=== PATIENT | male | born 1980 | race Caucasian/White ===

== ENCOUNTER 2017-11-19 10:28 | Day surgery (SDC) | payer OTHER, MEDICAID ==
[~2017-11-19] VITALS: Ht 182.9 cm; Wt 128.8 kg
[2017-11-19 11:24] LABS: HEMOGLOBIN 14.3 g/dL (14.1-18.0); LYMPH # 2.4 K/mm3 (0.7-4.5); LYMPH % 24.5 % (10-50)
--- NOTE | 2017-11-19 12:28 | Operative Note ---
Surgeon/Diagnoses Surgeon/[employer] Operator(s) Date of procedure: 11/19/17 Surgeon: MD Tanvir Hawkins Diagnoses Pre-op diagnosis: LEFT perianal abscess with extension to the LEFT medial buttock Post-op diagnosis Same Procedure Procedure Procedure: Incision and drainage of complex large LEFT perirenal/medial buttock abscess Indications: LANE URBINA is a 36 year-old Male with a history of increased pain and swelling in the LEFT perianal/medial buttock region. Evaluation revealed changes consistent with abscess. After discussion with the patient the risks and benefits the decision was made to proceed with incision and drainage. Findings: Large complex LEFT perianal abscess with extension to the medial buttock region Procedure Description: After informed consent was obtained, the patient was taken to the operating room and placed in the supine position. General anesthesia was induced and he was transferred to a modified lithotomy position. An elliptical incision was made along the most lateral aspect of the area of swelling/induration. The actual incision was along the LEFT medial buttock. Electrocautery was utilized to transect through the deeper subcutaneous tissue. A large complex abscess cavity was encountered. Fluid was obtained for Gram stain and culture. The entire cavity was carefully evacuated. A letter cautery was utilized to achieve hemostasis and the wound was packed with moistened Kerlix. The entire region was infiltrated with 1 percent lidocaine with epinephrine. Dressings were applied and the patient was transferred to recovery in stable condition. EBL (ml): 15 Anesthesia: Gen. with laryngeal mask airway Complications: No immediate Specimens: Fluid for Gram stain and culture Disposition Disposition: Stable to recovery from where he will be discharged home. He will begin twice- daily dressing changes tomorrow. He will follow-up next week. at [id number]
--- NOTE | 2017-11-19 12:41 | Anesthesia Record ---
Anesthesia Record Part II Discharge time: 1305 Destination: Same day surgery PACU nurse assessment review? Yes Patient is: Stable Anesthesia complications? No at 1244
--- NOTE | 2017-11-19 12:41 | Anesthesia Record ---
Anesthesia Record Part I Total IV fluids: 500 EBL (ml): 15 Urine Output: 0 B/P: 132/72 % SaO2: 95 Pulse: 83 Resps: 16 Temp: 97.6 Patient is: Drowsy, Stable Stable to PACU at: 1235 at 1241
[2017-11-19 14:14] VITALS: BP 121/66
== END 2017-11-19 13:40 | disposition home or self-care (01) ==
LOC: SDC 10:28
PROVIDERS: Surgery
PROC: 0D9Q7ZZ Drainage of Anus, Via Natural or Artificial Opening (ICD-10-PCS; principal; 2017-11-19 12:15)
DX: K61.0 Anal abscess (principal)
CPT/HCPCS: J0131; J1956; J2405